=== PATIENT | female | born 1985 | race African-American/Black ===

== ENCOUNTER 2022-07-22 10:55 | Emergency (ER) | payer SELFPAY ==
[~2022-07-22] VITALS: Ht 165.1 cm; Wt 67.6 kg
[2022-07-22 11:09] VITALS: BP 113/77
--- NOTE | 2022-07-22 11:34 | NUR ---
PRESENTS TO ED FOR MED REFILL OF ABILIFY (10 MG OR 300MG, PER PT "ITS AN INJECTION"), PER PT NO MEDS X1 MONTH SHE WAS OUT OF STATE [facility] PMH: BIPOLAR, DEPRESSION, ASTHMA
--- NOTE | 2022-07-22 12:17 | NUR ---
PT NOTED LEAVING LOBBY
--- NOTE | 2022-07-22 12:30 | NUR ---
AKANKSHA CHATMAN ATTEMPTED TO BRING PT BACK, NOT FOUND IN LOBBY/OUTSIDE
--- NOTE | 2022-07-22 13:32 | NUR ---
2ND ATTEMPT TO BRING PT BACK, NOT FOUND IN LOBBY/OUTSIDE. PATIENT LEFT WITHOUT BEING SEEN BY DR. SPAULDING/AKANKSHA CHATMAN. NO FURTHER CARE PROVIDED FOR PATIENT.
== END 2022-07-22 13:32 | disposition left against medical advice (07) ==
LOC: MED 10:55
DX: Z76.0 Encounter for issue of repeat prescription (principal); Z53.21 Procedure and treatment not carried out due to patient leaving prior to being seen by health care provider